=== PATIENT | female | born 1990 | race Caucasian/White ===

== ENCOUNTER 2022-01-25 07:05 | Outpatient (CLI) | payer OTHER, SELFPAY ==
--- NOTE | 2022-01-25 07:15 | CRLHL7_ITS ---
For Patients: As a result of the Century Cures Act, medical imaging exams and procedure reports are released immediately into your electronic medical record. You may view this report before your referring provider. If you have questions, please contact your health care provider. INDICATION: Evaluate anatomy. COMPARISON: 11.09.21 TECHNIQUE: Real time kaur scale imaging of the fetus was performed as well as color Doppler analysis of the umbilical vessels. FINDINGS: Sonographic imaging demonstrates a single living intrauterine gestation. Fetus demonstrates a regular cardiac rate of 159 beats per minute. Fetus has a vertex position. The placenta lies right anterior without evidence of placenta previa. Edge of the placenta is 8.1 cm from the internal cervical os. Amniotic fluid volume appears normal. Single deepest vertical pocket: 3.0 cm. The cervix is closed and measures 4.2 cm in length. The composite ultrasound gestational age is calculated at 21 w 3 d with an estimated sonographic due date of 06.04.22. The estimated weight is 433 grams which lies at the 75th %. The following biometric measurements were obtained: Biparietal diameter: 5.1 cm / 21w 4d 70th% Head circumference: 19.1 cm / 21w 2d 55th% Abdominal circumference: 16.9 cm / 21w 6d 72nd% Femur length: 3.6 cm / 21w 2d 49th% The HC/AC ratio measures: 1.13 range (1.06-1.24) On anatomic survey, there is a normal appearance of the cerebral ventricles, cavum septi pellucidi, cisterna magna and cerebellum. The nose, lips, and facial profile appear normal. The cervical, thoracic and lumbar spine are well visualized and appear normal. There is a normal four-chamber heart view and the left and right ventricular outflow tracts appear normal. The diaphragm and stomach appear normal. The kidneys and bladder also appear normal. There is a 2-vessel cord and cord insertion site. The four extremities appear normal. Possible echogenic bowel. IMPRESSION: 2 vessel cord and possible echogenic bowel. Level 2 ultrasound recommended. Remainder of the anatomic survey is normal. Good correlation with dates. Dictated by Prince Noriega MD @ 01/25/2022 10:32:01 AM (Electronically Signed)
== END 2022-01-25 07:06 | disposition home or self-care (01) ==
LOC: US 07:08
PROVIDERS: PCP Family Medicine; Visit Provider Midwife
DX: Z34.92 Encounter for supervision of normal pregnancy, unspecified, second trimester (principal); Z36.89 Encounter for other specified antenatal screening; Z3A.21 21 weeks gestation of pregnancy
CPT/HCPCS: 76805

== ENCOUNTER 2022-03-13 13:36 | Outpatient (CLI) | payer OTHER, SELFPAY | END 2022-03-13 13:37 | disposition home or self-care (01) | LOC: US 13:36 | PROVIDERS: PCP Family Medicine; Visit Provider Pediatrics Neonatal-Perinatal Medicine | DX: Z34.80 Encounter for supervision of other normal pregnancy, unspecified trimester (principal) | CPT/HCPCS: 76816; 76820 ==

== ENCOUNTER 2022-06-19 14:23 | Outpatient (CLI) | payer OTHER, SELFPAY ==
[2022-06-19] VITALS (13 sets, daily range): BP systolic 102–117; BP diastolic 55–61; PULSE 86–116; RESP 16–18; TEMP 36.7–36.9
[2022-06-19 15:15] LABS: Basophils Percent Auto 0.2 % (0.0-3.0); Hematocrit 29.8 % (33.0-51.0); Hemoglobin* 9.4 gm/dL (12.0-16.0); Immature Granulocytes Pct Auto 0.2 %; Lymphocytes Percent Auto 7.1 % (20-44); Mean Corpuscular HGB Conc 32 gm/dL (32-36); Mean Corpuscular Hemoglobin 28 pg (26-34); Mean Corpuscular Volume 90 fL (80-100); Monocytes Percent Auto 3.8 % (0.0-11.0); Neutrophils Percent Auto 88.7 % (42.0-72.0); Platelet Count* 171 K/uL (140-440); RDW Coefficient of Variation % 14.4 % (11.5-15.5); Red Blood Count 3.33 m/uL (4.00-5.20); White Blood Count* 17.63 K/uL (4.50-11.00)
[2022-06-19] MEDS: IBUPROFEN 600 MG TABLET PO (15:16)
[2022-06-19 15:19] LABS: Slide Review Reflex No
--- NOTE | 2022-06-19 15:23 | W.PM.LDBA ---
Subjective History of Present Illness Date Seen: 06/19/22 Narrative: Patient is being admitted to Labor and Delivery for post syncope. She is a 31 year old at 41+5 weeks gestation. She has been following with a microfilm duplicating unit supervisor for care, she went into labor this morning and had a home water , as planned, at 1218. She delivered a viable female . Had spontaneous delivery of placenta at 1238 after which she began to feel dizzy, faint and would have brief episodes of unresponsiveness. Her and microfilm duplicating unit supervisor had to bring her to the couch where blood pressure was noted to be as low as 68/40. IV started at 1305 and she received 1500 mL of saline. EMS was called and she was brought to the hospital. We[employer] Burner estimates EBL at 400mL. She did not get pitocin. She reports cramping at 4/10. She is feeling better now. Denies recent illness including URI symptoms or gastrointestinal symptoms. Her full history and physical as well as delivery report was dictated by microfilm duplicating unit supervisor. Please see this faxed report for details. OB - Problem Based A/P Additional Plan (1) Syncope: Status: Acute (2) Vaginal delivery: Status: Acute (3) Anemia affecting : Status: Acute Plan 1. s/p vaginal delivery 2. syncope, likely multifactorial--anemia, hypovolemia, hypoglycemia. Plan to rehydrate, make sure patient can tolerate PO intake and is able to ambulate. 3. Anemia 4. Blood type , will administer rhogam if needed. OB Result Labs Labs: Hgb 9.4 Labs Blood Type: 0 (-) negative OB Exam Physical Exam Vital signs: Pulse BP 100 114/61 06/19/22 15:17 06/19/22 15:17 Narrative: General: Pale, in no acute distress. Cardiovascular: regular rate and rhythm without murmur. Respiratory: Clear to auscultation bilaterally. Abdomen: Uterus firm just below umbilicus. Extremities without edema. Detailed Labor and Delivery Exam Patient Gravid: No
--- NOTE | 2022-06-19 15:57 | PM.OBDSVD1 ---
DS: Providers Provider Date Seen: 06/19/22 Primary care physician: Nara Huynh MD Attending Physician on discharge: Nara Huynh MD Date of Discharge: 06/19/22 DS: Diagnosis Discharge Diagnosis (1) Anemia affecting : Status: Acute (2) Vaginal delivery: Status: Acute (3) Syncope: Status: Acute Exam Narrative: Exam Narrative: see admit H&P from same day Const: Vital Signs, click to edit/add: Vital Signs - 24 hr 06/19/22 15:01 06/19/22 15:17 06/19/22 15:32 Pulse Rate 116 H 100 101 H Blood Pressure 110/57 L 114/61 103/55 L 06/19/22 15:47 Pulse Rate 102 H Blood Pressure 102/56 L OB - DS: Summary Hospital Course Hospital Course: The patient is a 31 year old G 5 P 5 at 41+5 weeks gestation that was admitted to the Center on 06/19/2022 for syncope and hypotension after at home. She received 1500 mL of IV fluids en route to the hospital. Her blood pressures have normalized. Hgb was 9.4, but uterus has remained firm and lochia normal. Visualization of placenta shows an intact placenta with 2 vessel cord (previously known). Peripartum Data Infant delivery method: Vaginal Laceration description: None [place] Infant Gender: Female Status at Discharge Overall status at discharge: patient is back to baseline Time Spent with Patient Time attestation: Total time spent providing and/or coordinating discharge services: Time spent: Less than 30 minutes Discharge Plan Discharge Disposition: Home, Self-Care Primary Care Provider: Nara Huynh Patient Instructions: OB Vaginal/Breast Feeding Activity Restrictions/Additional Instructions: Patient verbalized understanding of reviewed discharge instructions. Discharge Orders: Discharge Order (Routine); Ordered 06/19/22 Ordered By: Nara Huynh Forms: [employer] Info Instructions DS:Data Additional Comments Additional comments: ok to discharge if vitals remain stable, able to ambulate independently and can eat and drink. Also needs to wait for blood typing and rhogam if appropriate.
[2022-06-19] MEDS: ACETAMINOPHEN 500 MG TABLET 1000 MG PO (16:50)
== END 2022-06-19 18:40 | disposition home or self-care (01) ==
LOC: OB OUT 14:50 → OB 14:57
PROVIDERS: PCP Family Medicine; Visit Provider Family Medicine
DX: R55 Syncope and collapse (principal); D64.9 Anemia, unspecified
CPT/HCPCS: 36415; 85025; 86850; 86900; 86901; 99213; A9270

== ENCOUNTER 2023-03-25 15:56 | Outpatient (CLI) | payer OTHER, SELFPAY ==
--- NOTE | 2023-03-25 16:00 | CRLHL7_ITS ---
For Patients: As a result of the Cures Act, medical imaging exams and procedure reports are released immediately into your electronic medical record. You may view this report before your referring provider. If you have questions, please contact your health care provider. INDICATION: First trimester scan, establish dates. COMPARISON: None. TECHNIQUE: Real-time kaur-scale imaging of the pelvis was performed. FINDINGS: Sonographic imaging demonstrates a single living intrauterine gestation. The embryo demonstrates a regular cardiac rate measuring 171 beats per minute. The embryo`s crown-rump length measurement of 3.6 cm corresponds to a gestational age of 10 weeks 4 days with a sonographic due date of 10/17/2023. There is a normal-appearing yolk sac. There are no gross abnormalities noted within the embryo at this early state of development. The gestational sac has a normal appearance. There is no evidence of a perigestational hemorrhage. The amount of fluid within the sac appears appropriate for gestational age. The cervix is closed. The myometrium appears normal. The ovaries are of normal size. There are no suspicious fluid collections noted in the cul-de-sac. IMPRESSION: Normal first trimester OB ultrasound exam. Gestational age calculated at 10 weeks 4 days with a sonographic due date of 10/17/2023. Dictated by Prince Noriega MD @ 03/28/2023 5:51:19 AM (Electronically Signed)
== END 2023-03-25 15:57 | disposition home or self-care (01) ==
LOC: US 15:58
PROVIDERS: PCP Family Medicine; Visit Provider Midwife
DX: Z34.91 Encounter for supervision of normal pregnancy, unspecified, first trimester (principal); Z3A.10 10 weeks gestation of pregnancy
CPT/HCPCS: 76801

== ENCOUNTER 2023-05-29 14:54 | Outpatient (CLI) | payer OTHER, SELFPAY ==
--- NOTE | 2023-05-29 15:00 | CRLHL7_ITS ---
For Patients: As a result of the Century Cures Act, medical imaging exams and procedure reports are released immediately into your electronic medical record. You may view this report before your referring provider. If you have questions, please contact your health care provider. INDICATION: Evaluate anatomy. COMPARISON: 03/25/2023 TECHNIQUE: Real time kaur scale imaging of the fetus was performed as well as color Doppler analysis of the umbilical vessels. FINDINGS: Sonographic imaging demonstrates a single living intrauterine gestation. Fetus demonstrates a regular cardiac rate of 137 beats per minute. Fetus has a variable position. The placenta lies fundal posterior without evidence of placenta previa. The placental edge is located 5.0 cm from the internal cervical os. Amniotic fluid volume appears normal. Single deepest vertical pocket: 3.6 cm. The cervix is closed and measures 4.3 cm in length. The composite ultrasound gestational age is calculated at 20 weeks 4 days with an estimated sonographic due date of 10/12/2023. The estimated weight is 367 grams which lies at the 86th %. The following biometric measurements were obtained: Biparietal diameter: 4.7 cm/20 weeks 2 days 68th% Head circumference: 18.3 cm/20 weeks 5 days 78th% Abdominal circumference: 15.7 cm/20 weeks 6 days 77th% Femur length: 3.3 cm/20 weeks 3 days 62nd% The HC/AC ratio measures: 1.16 range (1.07-1.25) On anatomic survey, there is a normal appearance of the cerebral ventricles, cavum septi pellucidi, cisterna magna and cerebellum. The nose, lips, and facial profile appear normal. The cervical, thoracic and lumbar spine are well visualized and appear normal. There is a normal four-chamber heart view and the left and right ventricular outflow tracts appear normal. The diaphragm and stomach appear normal. The kidneys and bladder also appear normal. There is a normal three-vessel cord and cord insertion site. The four extremities appear normal. IMPRESSION: Normal OB ultrasound exam with concordance of clinical and sonographic dating. No intrinsic abnormalities noted on anatomic survey. Dictated by Prince Noriega MD @ 05/30/2023 10:43:56 AM (Electronically Signed)
== END 2023-05-29 14:55 | disposition home or self-care (01) ==
LOC: US 14:55
PROVIDERS: PCP Family Medicine; Visit Provider Midwife
DX: Z34.92 Encounter for supervision of normal pregnancy, unspecified, second trimester (principal); Z3A.20 20 weeks gestation of pregnancy
CPT/HCPCS: 76805